=== PATIENT | male | born 1945 | race Caucasian/White ===

== ENCOUNTER → 2016-12-30 | Outpatient (CLI) | payer MEDICARE | END | disposition home or self-care (01) | LOC: PCVCCLINIC 10:00 | PROVIDERS: ATTEND Internal Medicine Cardiovascular Disease | DX: E78.00 Pure hypercholesterolemia, unspecified (principal); I25.10 Atherosclerotic heart disease of native coronary artery without angina pectoris; I10 Essential (primary) hypertension; E11.9 Type 2 diabetes mellitus without complications; Z95.1 Presence of aortocoronary bypass graft | CPT/HCPCS: 80061; 93005; G0463 ==

== ENCOUNTER → 2017-11-01 | Outpatient (CLI) | payer MEDICARE | END | disposition home or self-care (01) | LOC: PCVCCLINIC 11:05 | DX: I25.10 Atherosclerotic heart disease of native coronary artery without angina pectoris (principal); I10 Essential (primary) hypertension; R07.9 Chest pain, unspecified; E11.9 Type 2 diabetes mellitus without complications; E78.00 Pure hypercholesterolemia, unspecified; Z95.1 Presence of aortocoronary bypass graft; Z79.82 Long term (current) use of aspirin; Z79.899 Other long term (current) drug therapy; Z79.84 Long term (current) use of oral hypoglycemic drugs | CPT/HCPCS: 80061; 93005; G0463 ==

== ENCOUNTER → 2018-04-21 | Outpatient (CLI) | payer MEDICARE | END | disposition home or self-care (01) | LOC: PCVCCLINIC 13:40 | DX: I25.10 Atherosclerotic heart disease of native coronary artery without angina pectoris (principal); E11.9 Type 2 diabetes mellitus without complications; E78.00 Pure hypercholesterolemia, unspecified; I10 Essential (primary) hypertension; S81.801A Unspecified open wound, right lower leg, initial encounter; X58.XXXA Exposure to other specified factors, initial encounter; Y93.89 Activity, other specified; Y92.89 Other specified places as the place of occurrence of the external cause; Y99.8 Other external cause status | CPT/HCPCS: 80061; 93005; G0463 ==

== ENCOUNTER → 2018-04-28 | Outpatient (CLI) | payer MEDICARE | END | disposition home or self-care (01) | LOC: PCVCIMAG 14:02 | DX: I73.9 Peripheral vascular disease, unspecified (principal); E11.9 Type 2 diabetes mellitus without complications | CPT/HCPCS: 93925 ==

== ENCOUNTER → 2018-11-22 | Outpatient (CLI) | payer MEDICARE ==
--- NOTE | 2018-11-22 15:46 | PCVCIMAG ---
APPROVED REPORT Study performed: 11/22/2018 11:07:48 Exam: Stress Echocardiogram Indication: CAD s/p CABG x4, DM, htn, hlp Patient Location: Echo lab Stress Nurse: Yvette Jolley RN Status: routine Ht: 5 ft 11 in HR: 65 bpm BP: 136/74 mmHg Rhythm: NSR Procedure The patient underwent an Exercise Stress Test using the Suhail Protocol. Blood pressure, heart rate, and EKG were monitored. An Echocardiogram was performed by bioinformatics technician in four stages in quad fashion. At peak stress, four selected images were obtained and placed side by side with resting images for comparison. Stress Test Details Stress Test: Exercise stress testing was performed using a Suhail protocol. HR Resting HR: 65 bpmMax Heart Rate (APMHR): 147 bpm Max HR Achieved: 130 bpmTarget HR (85% APMHR): 124 bpm % of APMHR: 88 Recovery HR: 96 bpm HR response to stress: Normal HR response to stress BP Resting BP: 136/74 mmHg Max BP: 164/76 mmHg Recovery BP: 154/76 mmHg BP response to stress: rare isolated PVCS ECG Resting ECG: Sinus Rhythm Stress ECG: Sinus Rhythm ST Change: Normal Arrhythmia: rare isolated PVCs Recovery ECG: Sinus Rhythm Recovery ST Change: Normal Recovery Arrhythmia: None Clinical Reason for Termination: Maximal effort Stress Symptoms: Dyspnea, Leg Fatigue Exercise duration: 7 min 13 sec Highest Stage Achieved: Stage 3: 3.4 mph at 14% grade. Exercise capacity: 10.1 METs Overall Exercise Capacity for Age: Good Scale: Sedentary Angina Score: None Pre-Stress Echo The resting Echocardiogram showed normal left ventricular contractility with an estimated Ejection Fraction of about 50-55%. Discordant septal motion consistent with CABG. Post-Stress Echo The stress Echocardiogram showed normal left ventricular contractility with an estimated Ejection Fraction of about 60-65%. Discordant septal motion consistent with CABG. Clinical No clinical or ECG evidence for ischemia. Conclusion Clinical Response: Non-ischemic Exercise Capacity: Average Stress ECG Response: Non-ischemic Stress Echo Images: Non-ischemic The left ventricle is normal in size and wall thickness in both the rest and stress images. Other Information Study Quality: Adequate <Conclusion> The left ventricle is normal in size and wall thickness in both the rest and stress images.
== END | disposition home or self-care (01) ==
LOC: PCVCIMAG 10:49
PROVIDERS: ATTEND Internal Medicine Cardiovascular Disease
DX: I25.10 Atherosclerotic heart disease of native coronary artery without angina pectoris (principal); E11.9 Type 2 diabetes mellitus without complications; I10 Essential (primary) hypertension; E78.00 Pure hypercholesterolemia, unspecified; E78.5 Hyperlipidemia, unspecified; Z95.1 Presence of aortocoronary bypass graft
CPT/HCPCS: 93325; 93351

== ENCOUNTER → 2019-07-27 | Outpatient (CLI) | payer MEDICARE | END | disposition home or self-care (01) | LOC: PCVCCLINIC 12:30 | PROVIDERS: ATTEND Internal Medicine Cardiovascular Disease | DX: I25.10 Atherosclerotic heart disease of native coronary artery without angina pectoris (principal); I45.10 Unspecified right bundle-branch block; I10 Essential (primary) hypertension; E78.00 Pure hypercholesterolemia, unspecified; E11.9 Type 2 diabetes mellitus without complications; Z95.1 Presence of aortocoronary bypass graft; Z79.82 Long term (current) use of aspirin; Z79.899 Other long term (current) drug therapy | CPT/HCPCS: 36415; 80061; 93005; G0463 ==